=== PATIENT | male | born 1990 | race Caucasian/White ===

== ENCOUNTER 2023-06-09 13:33 | Emergency (ER) | payer OTHER ==
[2023-06-09 14:31] VITALS: BP 134/87; O2SAT 99
--- NOTE | 2023-06-09 15:23 | ED Physician Documentation ---
PD HPI OPHTHO - Stated complaint Stated Complaint: R EYE INJURY - Chief complaint Chief Complaint: Heent - History obtained from History obtained from: Patient - Additional information Additional information: Patient is a 33-year-old male presenting for evaluation of right injury eye injury that occurred this morning. Patient was picking up cardboard boxes at the [employer] center and Accidentally poked himself in the eye with a box. He is Supposed to wear glasses but was not wearing them. He does not use contacts. Reports it was not hurting initially but as the morning has gone on it has been more sensitive to lights and he has been having some tearing. Review of Systems Eyes: reports: Photophobia, Discharge (Watery) Neurologic: denies: Head injury PD PAST MEDICAL HISTORY - Past Medical History Past Medical History: No - Past Surgical History Past Surgical History: No - Present Medications Home Medications: Ambulatory Orders Medication Instructions Recorded Confirmed Erythromycin Base [Erythromycin 1 appful RIGHTEYE 5XD 7 Days #1 gm 06/09/23 Ophthalmic Ointment] - Allergies Allergies/Adverse Reactions: Allergies Allergy/AdvReac Type Severity Reaction Status Date / Time No Known Drug Allergies Allergy Verified 06/09/23 14:28 - Social History Does the pt smoke?: No Smoking Status: Never smoker Does the pt drink ETOH?: Yes Does the pt have substance abuse?: No - Immunizations Immunizations are current?: Yes PD ED PE NORMAL - General General: Alert and oriented X 3, No acute distress, Well developed/nourished - HEENT HEENT: Atraumatic, PERRL, EOMI - Respiratory Respiratory: No respiratory distress - Neuro Neuro: Normal speech PD ED PE EXPANDED - HEENT HEENT Visual: 1 - abrasion - Eyes Eyes: PERRL, EOMI, Normal eyelids, No eyelid FB (everted), Nl conjunctiva /sclera, Corneal abrasion (Right eye), Fluorescein uptake (R eye), Anterior chambers clear. No: Hyphema Results - Vitals Vitals: Vital Signs - 24 hr 06/09/23 14:24 Temperature 36.3 C L Heart Rate 59 L Respiratory 15 Rate Blood Pressure 134/87 H O2 Saturation 99 Oxygen O2 Source Room air PD Medical Decision Making - ED course ED course: Patient is a 33-year-old male presenting for evaluation of injury to his right eye. No signs of globe rupture or other signs of increased intraocular pressure. Visual acuity is intact. He does have a corneal abrasion seen on fluorescein stain. He does not wear contacts. He declines any pain medica tions. Patient counseled on treatment plan with antibiotic ointment as well as follow-up with ophthalmology. He is counseled on concerning symptoms to return for. Departure - Departure Disposition: Home, Self Care Clinical Impression: Right corneal abrasion Condition: Stable Instructions: ED Eye Injury Corneal Abrasion Follow-Up: Isidoro Kingsley MD [Provider Admit Priv/Credential] - Prescriptions: Erythromycin Base [Erythromycin Ophthalmic Ointment] 1 appful RIGHTEYE 5XD 7 Days #1 gm Comments: You are found to have an abrasion to your right cornea. I am sending a prescription for antibiotic ointment to [facility] in [place]. Please make sure to complete the course of antibiotics and have close follow-up with an senior manufacturing engineer. Return to the ER if you develop any worsening symptoms such as increased pain, worsening vision. You can continue with acetaminophen or ibuprofen as needed for pain. Forms: PCP List Discharge Date/Time: 06/09/23 15:37
== END 2023-06-09 15:37 | disposition home or self-care (01) ==
LOC: ED 13:33
DX: S05.01XA Injury of conjunctiva and corneal abrasion without foreign body, right eye, initial encounter (principal); W22.8XXA Striking against or struck by other objects, initial encounter; Y93.89 Activity, other specified; Y92.89 Other specified places as the place of occurrence of the external cause; Y99.0 Civilian activity done for income or pay
CPT/HCPCS: 99282; 99283